=== PATIENT | female | born 1965 | race Caucasian/White ===

== ENCOUNTER 2020-07-18 03:33 | Outpatient (RCR) | payer OTHER, SELFPAY ==
[2020-07-18 09:57] LABS: Abs Immature Grans 1.42 10^3/uL (0.0-0.06); HCT 37.3 % (36.0-46.0); HGB 12.5 g/dL (11.2-15.7); MCH 28.8 pg (27.0-33.0); MCHC 33.5 % (32.0-36.0); MCV 85.9 fL (80-95); MPV 9.5 fL (8.0-11.0); Nucleated RBC 0 %; RBC 4.34 10^6/uL (3.93-5.22); RDW 12.4 % (11.7-14.6); RDW-SD 38.9 fL; WBC 11.69 10^3/uL (4.4-10.8)
[2020-07-18 10:11] LABS: ALT 45 U/L (14-59); AST 18 U/L (15-37); Albumin 3.2 g/dL (3.4-5.0); Alkaline Phosphatase 86 U/L (46-116); BUN 11 mg/dL (7-18); Bilirubin, Total 0.2 mg/dL (0.2-1.0); CREATININE 0.8 mg/dL (0.55-1.02); Calcium 8.7 mg/dL (8.5-10.1); Chloride 106 mmol/L (98-107); Glucose 99 mg/dL (74-106); Potassium 3.7 mmol/L (3.5-5.1); Sodium 141 mmol/L (136-145); Total Protein 7.2 g/dL (6.4-8.2)
[2020-07-18] MEDS: Normal Saline Flush 10 ML SYR IVP (10:11)
[2020-07-18] MEDS: Heparin 500 UNITS/5 ML SYRINGE IV (10:11)
[2020-07-18 10:18] LABS: Absolute Eosinophil Count 0.12 10^3/uL (0.0-0.7); Absolute Lymphocyte Count 1.52 10^3/uL (1.2-3.4); Absolute Monocyte Count 1.05 10^3/uL (0.1-0.8); Absolute Neutrophil Count 8.88 10^3/uL (1.2-6.7); Atypical Lymphocytes % 0; Bands % 6
[2020-07-18 10:19] LABS: Absolute Basophil Count 0.12 10^3/uL (0.0-0.2); Diff Comment Manual Differential
[2020-07-18 10:20] LABS: Platelet Count 203 10^3/uL (130-400); RBC Morphology Normal
== END 2020-08-10 23:59 | disposition home or self-care (01) ==
LOC: INF 03:33
PROVIDERS: Internal Medicine Hematology & Oncology; PCP Family Medicine; Visit Provider Internal Medicine Hematology & Oncology
DX: C50.412 Malignant neoplasm of upper-outer quadrant of left female breast (principal); Z17.0 Estrogen receptor positive status [ER+]; Z45.2 Encounter for adjustment and management of vascular access device
CPT/HCPCS: 36591; 80053; 85025

== ENCOUNTER 2020-07-28 10:21 | Outpatient (REF) | payer OTHER, SELFPAY ==
[2020-07-28 10:34] LABS: Abs Immature Grans 0.02 10^3/uL (0.0-0.06); Absolute Basophil Count 0.03 10^3/uL (0.0-0.2); Absolute Eosinophil Count 0.01 10^3/uL (0.0-0.7); Absolute Lymphocyte Count 1.15 10^3/uL (1.2-3.4); Absolute Monocyte Count 0.47 10^3/uL (0.1-0.8); Absolute Neutrophil Count 3.24 10^3/uL (1.2-6.7); Basophils % 0.6; Eosinophils % 0.2; HCT 32.5 % (36.0-46.0); Immature Grans % 0.4; Lymphocytes % 23.4; MCH 29.1 pg (27.0-33.0); MCHC 33.8 % (32.0-36.0); MPV 9.6 fL (8.0-11.0); Monocytes % 9.6; Neutrophils % 65.8; Nucleated RBC 0 %; Platelet Count 283 10^3/uL (130-400); RBC 3.78 10^6/uL (3.93-5.22); RDW 12.2 % (11.7-14.6); RDW-SD 37.2 fL; WBC 4.92 10^3/uL (4.4-10.8)
[2020-07-28 10:53] LABS: ALT 33 U/L (14-59); AST 16 U/L (15-37); Albumin 3.1 g/dL (3.4-5.0); Alkaline Phosphatase 53 U/L (46-116); Anion Gap 8.8 mmol/L (3-11); BUN 14 mg/dL (7-18); Bilirubin, Total 0.3 mg/dL (0.2-1.0); CO2 26.2 mmol/L (21.0-32.0); CREATININE 0.6 mg/dL (0.55-1.02); Calcium 8.9 mg/dL (8.5-10.1); Chloride 108 mmol/L (98-107); Glucose 96 mg/dL (74-106); Potassium 3.9 mmol/L (3.5-5.1); Sodium 143 mmol/L (136-145); T4 8.8 ug/mL (4.7-13.3); TSH 0.01 uIU/mL (0.36-3.74); Total Protein 6.9 g/dL (6.4-8.2)
[2020-07-28 17:15] LABS: T3, Total 263 ng/dL (97-169)
== END 2020-07-28 10:22 | disposition home or self-care (01) ==
LOC: LBN 10:21
PROVIDERS: PCP Family Medicine; Visit Provider Internal Medicine Hematology & Oncology
DX: C50.412 Malignant neoplasm of upper-outer quadrant of left female breast (principal); Z17.0 Estrogen receptor positive status [ER+]
CPT/HCPCS: 80053; 84436; 84443; 84480; 85025

== ENCOUNTER 2020-09-08 01:45 | Outpatient (RCR) | payer OTHER, SELFPAY ==
[2020-08-18] MEDS: Normal Saline Flush 10 ML SYR IVP (08:58)
[2020-08-18 09:01] LABS: Abs Immature Grans 0.02 10^3/uL (0.0-0.06); Absolute Basophil Count 0.03 10^3/uL (0.0-0.2); Absolute Eosinophil Count 0.05 10^3/uL (0.0-0.7); Absolute Lymphocyte Count 1.15 10^3/uL (1.2-3.4); Absolute Monocyte Count 0.31 10^3/uL (0.1-0.8); Absolute Neutrophil Count 1.81 10^3/uL (1.2-6.7); Basophils % 0.9; Eosinophils % 1.5; HCT 32.6 % (36.0-46.0); HGB 10.8 g/dL (11.2-15.7); Immature Grans % 0.6; Lymphocytes % 34.1; MCHC 33.1 % (32.0-36.0); MCV 87.6 fL (80-95); Monocytes % 9.2; Neutrophils % 53.7; Nucleated RBC 0 %; Platelet Count 236 10^3/uL (130-400); RBC 3.72 10^6/uL (3.93-5.22); RDW 14.8 % (11.7-14.6); RDW-SD 45.2 fL; WBC 3.37 10^3/uL (4.4-10.8)
[2020-08-18 09:13] LABS: ALT 29 U/L (14-59); AST 15 U/L (15-37); Albumin 3.5 g/dL (3.4-5.0); Alkaline Phosphatase 67 U/L (46-116); Anion Gap 7.4 mmol/L (3-11); BUN 10 mg/dL (7-18); Bilirubin, Total 0.3 mg/dL (0.2-1.0); CO2 26.6 mmol/L (21.0-32.0); CREATININE 0.7 mg/dL (0.55-1.02); Calcium 9.4 mg/dL (8.5-10.1); Chloride 107 mmol/L (98-107); Glucose 101 mg/dL (74-106); Potassium 3.8 mmol/L (3.5-5.1); Sodium 141 mmol/L (136-145); Total Protein 7.3 g/dL (6.4-8.2)
[2020-09-08] MEDS: Normal Saline Flush 10 ML SYR IVP (09:25)
[2020-09-08 09:26] LABS: Abs Immature Grans 0.02 10^3/uL (0.0-0.06); Absolute Basophil Count 0.01 10^3/uL (0.0-0.2); Absolute Eosinophil Count 0.01 10^3/uL (0.0-0.7); Absolute Lymphocyte Count 1.09 10^3/uL (1.2-3.4); Absolute Monocyte Count 0.39 10^3/uL (0.1-0.8); Basophils % 0.3; Eosinophils % 0.3; HCT 30.6 % (36.0-46.0); HGB 10.3 g/dL (11.2-15.7); Immature Grans % 0.5; Lymphocytes % 28.5; MCH 29.8 pg (27.0-33.0); MCHC 33.7 % (32.0-36.0); MCV 88.4 fL (80-95); MPV 9.6 fL (8.0-11.0); Monocytes % 10.2; Neutrophils % 60.2; Nucleated RBC 0 %; Platelet Count 183 10^3/uL (130-400); RBC 3.46 10^6/uL (3.93-5.22); RDW 16.6 % (11.7-14.6); RDW-SD 52.8 fL; WBC 3.82 10^3/uL (4.4-10.8)
[2020-09-08 09:40] LABS: ALT 25 U/L (14-59); AST 13 U/L (15-37); Albumin 3.5 g/dL (3.4-5.0); Alkaline Phosphatase 62 U/L (46-116); Anion Gap 11.2 mmol/L (3-11); BUN 13 mg/dL (7-18); Bilirubin, Total 0.3 mg/dL (0.2-1.0); CO2 24.8 mmol/L (21.0-32.0); CREATININE 0.7 mg/dL (0.55-1.02); Calcium 9.4 mg/dL (8.5-10.1); Chloride 107 mmol/L (98-107); Glucose 99 mg/dL (74-106); Potassium 3.9 mmol/L (3.5-5.1); Sodium 143 mmol/L (136-145); Total Protein 7.4 g/dL (6.4-8.2)
== END 2020-09-09 23:59 | disposition home or self-care (01) ==
LOC: INF 01:45
PROVIDERS: PCP Family Medicine; Visit Provider Internal Medicine Hematology & Oncology
DX: C50.412 Malignant neoplasm of upper-outer quadrant of left female breast (principal); Z17.0 Estrogen receptor positive status [ER+]; Z45.2 Encounter for adjustment and management of vascular access device
CPT/HCPCS: 36591; 80053; 85025

== ENCOUNTER 2020-09-29 02:50 | Outpatient (RCR) | payer OTHER, SELFPAY ==
[2020-09-29] MEDS: Normal Saline Flush 10 ML SYR IVP (08:02)
[2020-09-29 08:21] LABS: Abs Immature Grans 0.02 10^3/uL (0.0-0.06); Absolute Basophil Count 0.02 10^3/uL (0.0-0.2); Absolute Lymphocyte Count 1.02 10^3/uL (1.2-3.4); Absolute Monocyte Count 0.37 10^3/uL (0.1-0.8); Absolute Neutrophil Count 1.63 10^3/uL (1.2-6.7); Basophils % 0.7; HCT 30.1 % (36.0-46.0); Immature Grans % 0.7; Lymphocytes % 33.3; MCH 30.4 pg (27.0-33.0); MCHC 33.2 % (32.0-36.0); MCV 91.5 fL (80-95); MPV 9.7 fL (8.0-11.0); Monocytes % 12.1; Neutrophils % 53.2; Nucleated RBC 0 %; Platelet Count 149 10^3/uL (130-400); RBC 3.29 10^6/uL (3.93-5.22); RDW 17.2 % (11.7-14.6); RDW-SD 57.9 fL; WBC 3.06 10^3/uL (4.4-10.8)
[2020-09-29 08:53] LABS: ALT 23 U/L (14-59); AST 10 U/L (15-37); Albumin 3.5 g/dL (3.4-5.0); Alkaline Phosphatase 68 U/L (46-116); Anion Gap 9.9 mmol/L (3-11); BUN 13 mg/dL (7-18); Bilirubin, Total 0.3 mg/dL (0.2-1.0); CO2 27.1 mmol/L (21.0-32.0); CREATININE 0.7 mg/dL (0.55-1.02); Calcium 8.8 mg/dL (8.5-10.1); Chloride 106 mmol/L (98-107); Glucose 103 mg/dL (74-106); Potassium 3.8 mmol/L (3.5-5.1); Sodium 143 mmol/L (136-145); T4 11.3 ug/mL (4.7-13.3); Total Protein 7.6 g/dL (6.4-8.2)
[2020-09-29 08:57] LABS: TSH < 0.01 uIU/mL (0.36-3.74)
[2020-09-29 16:44] LABS: T3, Total 324 ng/dL (97-169)
== END 2020-10-10 23:59 | disposition home or self-care (01) ==
LOC: INF 02:50
PROVIDERS: PCP Family Medicine; Visit Provider Internal Medicine Hematology & Oncology
DX: C50.412 Malignant neoplasm of upper-outer quadrant of left female breast (principal); Z17.0 Estrogen receptor positive status [ER+]; Z45.2 Encounter for adjustment and management of vascular access device
CPT/HCPCS: 36591; 80053; 84436; 84443; 84480; 85025

== ENCOUNTER 2020-10-20 02:34 | Outpatient (RCR) | payer OTHER, SELFPAY ==
[2020-10-20] MEDS: Normal Saline Flush 10 ML SYR IVP (09:23)
[2020-10-20 09:41] LABS: Abs Immature Grans 0.01 10^3/uL (0.0-0.06); Absolute Basophil Count 0.01 10^3/uL (0.0-0.2); Absolute Lymphocyte Count 0.95 10^3/uL (1.2-3.4); Absolute Monocyte Count 0.38 10^3/uL (0.1-0.8); Absolute Neutrophil Count 1.57 10^3/uL (1.2-6.7); Basophils % 0.3; HCT 27.6 % (36.0-46.0); HGB 9.2 g/dL (11.2-15.7); Immature Grans % 0.3; Lymphocytes % 32.5; MCH 32.2 pg (27.0-33.0); MCHC 33.3 % (32.0-36.0); MCV 96.5 fL (80-95); MPV 9.9 fL (8.0-11.0); Neutrophils % 53.9; Nucleated RBC 0 %; Platelet Count 182 10^3/uL (130-400); RBC 2.86 10^6/uL (3.93-5.22); RDW 16.4 % (11.7-14.6); RDW-SD 58.6 fL; WBC 2.92 10^3/uL (4.4-10.8)
[2020-10-20 09:55] LABS: ALT 18 U/L (14-59); AST 5 U/L (15-37); Albumin 3.2 g/dL (3.4-5.0); Alkaline Phosphatase 62 U/L (46-116); Anion Gap 11.1 mmol/L (3-11); BUN 14 mg/dL (7-18); Bilirubin, Total 0.3 mg/dL (0.2-1.0); CO2 23.9 mmol/L (21.0-32.0); CREATININE 0.7 mg/dL (0.55-1.02); Calcium 8.8 mg/dL (8.5-10.1); Chloride 109 mmol/L (98-107); Glucose 104 mg/dL (74-106); Potassium 3.7 mmol/L (3.5-5.1); Sodium 144 mmol/L (136-145); TSH 0.01 uIU/mL (0.36-3.74)
[2020-10-20 17:17] LABS: T3, Total 166 ng/dL (97-169)
== END 2020-11-09 23:59 | disposition home or self-care (01) ==
LOC: INF 02:34
PROVIDERS: PCP Family Medicine; Visit Provider Internal Medicine Hematology & Oncology
DX: C50.412 Malignant neoplasm of upper-outer quadrant of left female breast (principal); Z45.2 Encounter for adjustment and management of vascular access device; Z17.0 Estrogen receptor positive status [ER+]
CPT/HCPCS: 36591; 80053; 84436; 84443; 84480; 85025

== ENCOUNTER 2021-01-03 13:45 | Outpatient (RCR) | payer OTHER, SELFPAY ==
[2021-01-03] MEDS: Normal Saline Flush 10 ML SYR IVP (14:00)
[2021-01-03] MEDS: Heparin 500 UNITS/5 ML SYRINGE IV (14:00)
== END 2021-01-10 23:59 | disposition home or self-care (01) ==
LOC: INF 13:45
PROVIDERS: PCP Family Medicine; Visit Provider Internal Medicine Hematology & Oncology
DX: Z45.2 Encounter for adjustment and management of vascular access device (principal)
CPT/HCPCS: 96523

== ENCOUNTER 2021-05-04 03:04 | Outpatient (RCR) | payer OTHER, SELFPAY ==
[2021-05-04] MEDS: Normal Saline Flush 10 ML SYR IVP (08:04)
[2021-05-04 08:16] LABS: Abs Immature Grans 0.02 10^3/uL (0.0-0.06); Absolute Basophil Count 0.03 10^3/uL (0.0-0.2); Absolute Eosinophil Count 0.32 10^3/uL (0.0-0.7); Absolute Lymphocyte Count 0.57 10^3/uL (1.2-3.4); Absolute Monocyte Count 0.58 10^3/uL (0.1-0.8); Absolute Neutrophil Count 2.83 10^3/uL (1.2-6.7); Basophils % 0.7; Eosinophils % 7.4; HCT 36.2 % (36.0-46.0); HGB 11.7 g/dL (11.2-15.7); Immature Grans % 0.5; Lymphocytes % 13.1; MCH 27.9 pg (27.0-33.0); MCHC 32.3 % (32.0-36.0); MCV 86.4 fL (80-95); MPV 8.8 fL (8.0-11.0); Monocytes % 13.3; Nucleated RBC 0 %; Platelet Count 258 10^3/uL (130-400); RBC 4.19 10^6/uL (3.93-5.22); RDW 13.1 % (11.7-14.6); RDW-SD 40.9 fL; WBC 4.35 10^3/uL (4.4-10.8)
[2021-05-04 08:28] LABS: ALT 26 U/L (14-59); AST 18 U/L (15-37); Albumin 3.3 g/dL (3.4-5.0); Alkaline Phosphatase 60 U/L (46-116); Anion Gap 10.3 mmol/L (3-11); BUN 15 mg/dL (7-18); Bilirubin, Total 0.3 mg/dL (0.2-1.0); CO2 27.7 mmol/L (21.0-32.0); CREATININE 0.7 mg/dL (0.55-1.02); Calcium 9.5 mg/dL (8.5-10.1); Chloride 104 mmol/L (98-107); Glucose 101 mg/dL (74-106); Potassium 3.6 mmol/L (3.5-5.1); Sodium 142 mmol/L (136-145); Total Protein 7.7 g/dL (6.4-8.2)
== END 2021-05-12 23:59 | disposition home or self-care (01) ==
LOC: INF 03:04
PROVIDERS: Internal Medicine Hematology & Oncology; PCP Family Medicine; Visit Provider Internal Medicine Hematology & Oncology
DX: C50.412 Malignant neoplasm of upper-outer quadrant of left female breast (principal); Z45.2 Encounter for adjustment and management of vascular access device; Z17.0 Estrogen receptor positive status [ER+]
CPT/HCPCS: 36591; 80053; 85025

== ENCOUNTER 2021-05-25 03:39 | Outpatient (RCR) | payer OTHER, SELFPAY ==
[2021-05-25] MEDS: Normal Saline Flush 10 ML SYR IVP (09:11)
[2021-05-25 09:17] LABS: Abs Immature Grans 0.04 10^3/uL (0.0-0.06); Absolute Basophil Count 0.04 10^3/uL (0.0-0.2); Absolute Eosinophil Count 0.29 10^3/uL (0.0-0.7); Absolute Monocyte Count 0.66 10^3/uL (0.1-0.8); Absolute Neutrophil Count 4.48 10^3/uL (1.2-6.7); Basophils % 0.7; Eosinophils % 4.7; HCT 35.6 % (36.0-46.0); HGB 11.5 g/dL (11.2-15.7); Immature Grans % 0.7; Lymphocytes % 9.8; MCH 27.5 pg (27.0-33.0); MCHC 32.3 % (32.0-36.0); MCV 85.2 fL (80-95); MPV 8.9 fL (8.0-11.0); Monocytes % 10.8; Neutrophils % 73.3; Nucleated RBC 0 %; Platelet Count 292 10^3/uL (130-400); RBC 4.18 10^6/uL (3.93-5.22); RDW 12.7 % (11.7-14.6); RDW-SD 39.1 fL; WBC 6.11 10^3/uL (4.4-10.8)
[2021-05-25 09:30] LABS: ALT 25 U/L (14-59); AST 18 U/L (15-37); Albumin 3.3 g/dL (3.4-5.0); Alkaline Phosphatase 55 U/L (46-116); Anion Gap 7.6 mmol/L (3-11); BUN 14 mg/dL (7-18); Bilirubin, Total 0.2 mg/dL (0.2-1.0); CO2 28.4 mmol/L (21.0-32.0); CREATININE 0.6 mg/dL (0.55-1.02); Calcium 9.6 mg/dL (8.5-10.1); Chloride 103 mmol/L (98-107); Glucose 98 mg/dL (74-106); Potassium 3.8 mmol/L (3.5-5.1); Sodium 139 mmol/L (136-145); Total Protein 7.6 g/dL (6.4-8.2)
== END 2021-06-12 23:59 | disposition home or self-care (01) ==
LOC: INF 03:39
PROVIDERS: PCP Family Medicine; Visit Provider Internal Medicine Hematology & Oncology
DX: C50.412 Malignant neoplasm of upper-outer quadrant of left female breast (principal); Z17.0 Estrogen receptor positive status [ER+]; Z45.2 Encounter for adjustment and management of vascular access device
CPT/HCPCS: 36591; 80053; 85025

== ENCOUNTER 2021-07-06 01:20 | Outpatient (RCR) | payer OTHER, SELFPAY ==
[2021-06-15] MEDS: Normal Saline Flush 10 ML SYR IVP (10:00)
[2021-06-15 10:27] LABS: Abs Immature Grans 0.01 10^3/uL (0.0-0.06); Absolute Basophil Count 0.04 10^3/uL (0.0-0.2); Absolute Eosinophil Count 0.19 10^3/uL (0.0-0.7); Absolute Lymphocyte Count 0.55 10^3/uL (1.2-3.4); Absolute Monocyte Count 0.37 10^3/uL (0.1-0.8); Basophils % 1.1; Eosinophils % 5.3; HGB 11.8 g/dL (11.2-15.7); Immature Grans % 0.3; Lymphocytes % 15.4; MCH 27.1 pg (27.0-33.0); MCHC 31.9 % (32.0-36.0); MCV 84.9 fL (80-95); MPV 9.4 fL (8.0-11.0); Monocytes % 10.4; Neutrophils % 67.5; Nucleated RBC 0 %; Platelet Count 291 10^3/uL (130-400); RBC 4.36 10^6/uL (3.93-5.22); RDW 13.5 % (11.7-14.6); RDW-SD 41.5 fL; WBC 3.56 10^3/uL (4.4-10.8)
[2021-06-15 10:41] LABS: ALT 29 U/L (14-59); AST 20 U/L (15-37); Albumin 3.4 g/dL (3.4-5.0); Alkaline Phosphatase 53 U/L (46-116); BUN 12 mg/dL (7-18); Bilirubin, Total 0.3 mg/dL (0.2-1.0); CREATININE 0.6 mg/dL (0.55-1.02); Calcium 9.6 mg/dL (8.5-10.1); Chloride 105 mmol/L (98-107); Glucose 100 mg/dL (74-106); Potassium 3.5 mmol/L (3.5-5.1); Sodium 141 mmol/L (136-145); Total Protein 7.7 g/dL (6.4-8.2)
[2021-07-06] MEDS: Normal Saline Flush 10 ML SYR IVP (10:51)
[2021-07-06 11:12] LABS: Absolute Basophil Count 0.03 10^3/uL (0.0-0.2); Absolute Eosinophil Count 0.15 10^3/uL (0.0-0.7); Absolute Lymphocyte Count 0.79 10^3/uL (1.2-3.4); Absolute Monocyte Count 0.47 10^3/uL (0.1-0.8); Absolute Neutrophil Count 1.73 10^3/uL (1.2-6.7); Basophils % 0.9; Eosinophils % 4.7; HCT 37.3 % (36.0-46.0); HGB 11.9 g/dL (11.2-15.7); Lymphocytes % 24.9; MCH 27.4 pg (27.0-33.0); MCHC 31.9 % (32.0-36.0); MCV 85.7 fL (80-95); MPV 9.8 fL (8.0-11.0); Monocytes % 14.8; Neutrophils % 54.7; Nucleated RBC 0 %; Platelet Count 253 10^3/uL (130-400); RBC 4.35 10^6/uL (3.93-5.22); RDW-SD 43.7 fL; WBC 3.17 10^3/uL (4.4-10.8)
[2021-07-06 11:23] LABS: ALT 29 U/L (14-59); AST 20 U/L (15-37); Albumin 3.5 g/dL (3.4-5.0); Alkaline Phosphatase 54 U/L (46-116); Anion Gap 3.6 mmol/L (3-11); BUN 14 mg/dL (7-18); Bilirubin, Total 0.3 mg/dL (0.2-1.0); CO2 28.4 mmol/L (21.0-32.0); CREATININE 0.6 mg/dL (0.55-1.02); Calcium 9.3 mg/dL (8.5-10.1); Chloride 108 mmol/L (98-107); Glucose 89 mg/dL (74-106); Potassium 3.7 mmol/L (3.5-5.1); Sodium 140 mmol/L (136-145); Total Protein 7.6 g/dL (6.4-8.2)
== END 2021-07-10 23:59 | disposition home or self-care (01) ==
LOC: INF 01:20
PROVIDERS: Internal Medicine Hematology & Oncology; PCP Family Medicine; Visit Provider Internal Medicine Hematology & Oncology
DX: Z45.2 Encounter for adjustment and management of vascular access device (principal); C50.412 Malignant neoplasm of upper-outer quadrant of left female breast; Z17.0 Estrogen receptor positive status [ER+]
CPT/HCPCS: 36591; 80053; 85025

== ENCOUNTER 2021-07-27 03:19 | Outpatient (RCR) | payer OTHER, SELFPAY ==
[2021-07-27] MEDS: Normal Saline Flush 10 ML SYR IVP (10:51)
[2021-07-27 10:58] LABS: Abs Immature Grans 0.02 10^3/uL (0.0-0.06); Absolute Basophil Count 0.01 10^3/uL (0.0-0.2); Absolute Lymphocyte Count 0.82 10^3/uL (1.2-3.4); Absolute Neutrophil Count 2.23 10^3/uL (1.2-6.7); Basophils % 0.3; Eosinophils % 2.7; HCT 39.5 % (36.0-46.0); HGB 12.7 g/dL (11.2-15.7); Immature Grans % 0.5; Lymphocytes % 22.3; MCH 26.8 pg (27.0-33.0); MCHC 32.2 % (32.0-36.0); MCV 83.5 fL (80-95); MPV 9.5 fL (8.0-11.0); Monocytes % 13.6; Neutrophils % 60.6; Nucleated RBC 0 %; Platelet Count 287 10^3/uL (130-400); RBC 4.73 10^6/uL (3.93-5.22); RDW 13.9 % (11.7-14.6); RDW-SD 42.7 fL; WBC 3.68 10^3/uL (4.4-10.8)
[2021-07-27 11:12] LABS: ALT 33 U/L (14-59); AST 25 U/L (15-37); Albumin 3.7 g/dL (3.4-5.0); Alkaline Phosphatase 59 U/L (46-116); Anion Gap 8.3 mmol/L (3-11); BUN 15 mg/dL (7-18); Bilirubin, Total 0.3 mg/dL (0.2-1.0); CO2 26.7 mmol/L (21.0-32.0); CREATININE 0.6 mg/dL (0.55-1.02); Calcium 9.9 mg/dL (8.5-10.1); Chloride 107 mmol/L (98-107); Glucose 96 mg/dL (74-106); Potassium 3.8 mmol/L (3.5-5.1); Sodium 142 mmol/L (136-145)
== END 2021-08-10 23:59 | disposition home or self-care (01) ==
LOC: INF 03:19
PROVIDERS: PCP Family Medicine; Visit Provider Internal Medicine Hematology & Oncology
DX: C50.412 Malignant neoplasm of upper-outer quadrant of left female breast (principal); Z17.0 Estrogen receptor positive status [ER+]; Z45.2 Encounter for adjustment and management of vascular access device
CPT/HCPCS: 36591; 80053; 85025

== ENCOUNTER 2021-09-07 12:00 | Outpatient (RCR) | payer OTHER, SELFPAY ==
[2021-08-17] MEDS: Normal Saline Flush 10 ML SYR IVP (10:39)
[2021-08-17 10:47] LABS: Abs Immature Grans 0.01 10^3/uL (0.0-0.06); Absolute Basophil Count 0.02 10^3/uL (0.0-0.2); Absolute Eosinophil Count 0.16 10^3/uL (0.0-0.7); Absolute Lymphocyte Count 0.77 10^3/uL (1.2-3.4); Absolute Monocyte Count 0.53 10^3/uL (0.1-0.8); Absolute Neutrophil Count 2.39 10^3/uL (1.2-6.7); Basophils % 0.5; Eosinophils % 4.1; HCT 38.3 % (36.0-46.0); HGB 12.2 g/dL (11.2-15.7); Immature Grans % 0.3; Lymphocytes % 19.8; MCH 26.6 pg (27.0-33.0); MCHC 31.9 % (32.0-36.0); MCV 83.4 fL (80-95); MPV 9.9 fL (8.0-11.0); Monocytes % 13.7; Neutrophils % 61.6; Nucleated RBC 0 %; Platelet Count 256 10^3/uL (130-400); RBC 4.59 10^6/uL (3.93-5.22); RDW 15.3 % (11.7-14.6); RDW-SD 46.9 fL; WBC 3.88 10^3/uL (4.4-10.8)
[2021-08-17 10:59] LABS: ALT 36 U/L (14-59); AST 23 U/L (15-37); Albumin 3.5 g/dL (3.4-5.0); Alkaline Phosphatase 57 U/L (46-116); Anion Gap 6.9 mmol/L (3-11); BUN 12 mg/dL (7-18); Bilirubin, Total 0.3 mg/dL (0.2-1.0); CO2 29.1 mmol/L (21.0-32.0); CREATININE 0.6 mg/dL (0.55-1.02); Calcium 9.6 mg/dL (8.5-10.1); Chloride 105 mmol/L (98-107); Glucose 97 mg/dL (74-106); Potassium 3.7 mmol/L (3.5-5.1); Sodium 141 mmol/L (136-145); Total Protein 7.6 g/dL (6.4-8.2)
[2021-09-07] MEDS: Normal Saline Flush 10 ML SYR IVP (12:51)
[2021-09-07 13:09] LABS: Abs Immature Grans 0.02 10^3/uL (0.0-0.06); Absolute Basophil Count 0.03 10^3/uL (0.0-0.2); Absolute Eosinophil Count 0.15 10^3/uL (0.0-0.7); Absolute Lymphocyte Count 0.95 10^3/uL (1.2-3.4); Absolute Monocyte Count 0.35 10^3/uL (0.1-0.8); Absolute Neutrophil Count 3.25 10^3/uL (1.2-6.7); Basophils % 0.6; Eosinophils % 3.2; HCT 37.7 % (36.0-46.0); HGB 12.1 g/dL (11.2-15.7); Immature Grans % 0.4; MCH 27.3 pg (27.0-33.0); MCHC 32.1 % (32.0-36.0); MCV 85 fL (80-95); MPV 9.7 fL (8.0-11.0); Monocytes % 7.4; Neutrophils % 68.4; Platelet Count 248 10^3/uL (130-400); RBC 4.43 10^6/uL (3.93-5.22); WBC 4.75 10^3/uL (4.4-10.8)
[2021-09-07 13:31] LABS: ALT 30 U/L (14-59); AST 26 U/L (15-37); Albumin 3.4 g/dL (3.4-5.0); Alkaline Phosphatase 64 U/L (46-116); Anion Gap 7.8 mmol/L (3-11); BUN 18 mg/dL (7-18); Bilirubin, Total 0.3 mg/dL (0.2-1.0); CO2 28.2 mmol/L (21.0-32.0); CREATININE 0.6 mg/dL (0.55-1.02); Calcium 9.2 mg/dL (8.5-10.1); Chloride 106 mmol/L (98-107); Glucose 127 mg/dL (74-106); Potassium 3.6 mmol/L (3.5-5.1); Sodium 142 mmol/L (136-145); Total Protein 7.7 g/dL (6.4-8.2)
== END 2021-09-09 23:59 | disposition home or self-care (01) ==
LOC: INF 12:00
PROVIDERS: PCP Family Medicine; Visit Provider Internal Medicine Hematology & Oncology
DX: C50.412 Malignant neoplasm of upper-outer quadrant of left female breast (principal); Z17.0 Estrogen receptor positive status [ER+]; Z45.2 Encounter for adjustment and management of vascular access device
CPT/HCPCS: 36591; 80053; 85025

== ENCOUNTER → 2021-09-14 03:04 | Outpatient (CLI) | payer OTHER, SELFPAY ==
--- NOTE | 2021-09-14 | DI.US_ITS ---
APPROVED REPORT EXAM: Comprehensive 2D, Doppler, and color-flow Echocardiogram Patient Location: Out-Patient Bank Manager: Rosemarie Haney RDCS (AE) Indications: Lt breast cancer, Chemotherapy Other Information Study Quality: Adequate Conclusion Normal left ventricular wall thickness and chamber size. Estimated ejection fraction is 55 to 60%. Wall motion is normal Normal right ventricular size and systolic function Both atria are normal in size There is no structural or hemodynamically significant valvular disease Normal estimated right ventricular systolic pressure, 26 mmHg Wall motion Left Ventricle The left ventricle is normal size. The left ventricular systolic function is normal. The left ventric ular ejection fraction is within the normal range. There is normal left ventricular wall thickness. T here is normal LV segmental wall motion. There is no ventricular septal defect visualized. LVEF is 55 -60%. Right Ventricle The right ventricle is normal size. The right ventricular systolic function is normal. The RVSP is 26 .0 mmHg. Atria Left atrium is borderline dilated. The right atrium size is normal. The interatrial septum is intact with no evidence for an atrial septal defect. Aortic Valve The aortic valve is normal in structure. Aortic valve is trileaflet. There is no aortic valvular sten osis. No aortic regurgitation is present. Mitral Valve The mitral valve is normal in structure. No evidence of mitral valve stenosis. Mild mitral regurgitat ion. Tricuspid Valve The tricuspid valve is normal in structure. There is no tricuspid valve stenosis. Trace to mild tricu spid regurgitation. Pulmonic Valve The pulmonary valve is normal in structure. There is no pulmonic valvular stenosis. Trace pulmonic re gurgitation. Great Vessels The aortic root is normal in size. The ascending aorta is normal in size. Aortic arch is normal in ca liber. IVC is normal in size and collapses >50% with inspiration. Pericardium There is no pericardial effusion. 2D Dimensions IVSD d PLAX 0.91 cm F: 0.6-1.0 LV Vol A2C d MOD 104.0 mL LVPW d PLAX 0.90 cm F: 0.6 - 1.0 LV Vol A4C d MOD 116.7 mL LVID d PLAX 4.41 cm F: 3.8 - 5.2 LA vol/ BSA A2C s A-L 38.4 mL/m2 LVDs 2.95 cm F: 2.2 - 3.5 LA vol/ BSA A4C s A-L 25.0 mL/m2 Ao Root d 3.34 cm F: 2.7 - 3.3 LA Vol/ BSA Biplane s A-L 31.7 mL/m2 RA Area A4C 13.15 cm2 LA Area A4C s MOD 17.27 cm2 RA Vol/ BSA A4C s A-L 16.4 mL/m2 LA Area A2C s MOD 20.93 cm2 Ao Asc Diam d 3.24 cm F: 2.3 - 3.1 LV EF A4C MOD 60.0 % LV EF Teichholz 61.1 % LV EF A2C MOD 60.8 % LVEF (Gabriel's) 61.20 % F: 54 - 74 LV EF Biplane MOD 61.2 % LV Volume 87.15 mL F: 46 - 106 SV 69.60 mL LV Volume Index 46.60 mL/m2 F: 29 - 61 SV Index 37.07 mL/m2 LV Vol Biplane MOD 113.7 mL FS 32.50 % M-Mode TAPSE 2.09 cm (M/F) >1.7 LV Diastology MV E' medial 0.068 (>0.07 m/s) E/A Ratio 0.9 LV E/e MED 9.10 (<14) MV E Vmax 0.63 (0.4-1.3 m/s) MV E' lateral 0.103 (>0.1 m/s) MV A Vmax 0.70 (0.4-1.3 m/s) LV E/e LAT 6.05 (<14) MV E/A Ratio 0.86 MV E/E' medial 9.14 MV E/E' lateral 6.10 Aortic Valve LVOT Area 3.42 cm2 AoV Area Vmax 2.84 cm2 LVOT Vmax 1.09 m/s AoV Area/ BSA (Vmax) 1.52 cm2/m2 LVOT Mean [place]. 0.73 m/s DARCI Mean [place]. 2.77 cm2 LVOT Peak Grad 4.7 mmHg DARCI Mean [place]. Index 1.47 cm2/m2 LVOT Mean Grad 2.5 mmHg LVOT VTI 0.216 m LVOT Diam s 2.05 cm AoV Vmax 1.31 m/s Velocity Ratio 0.83 AoV Mean [place]. 0.90 m/s AoV Peak Grad 6.8 mmHg LVOT SV 73.98 mL AoV Mean Grad 3.7 mmHg AoV VTI 0.236 m AoV Area VTI 3.14 cm2 AoV Area/ BSA (VTI) 1.67 cm/m2 Mitral Valve MV DT 272 (160-240 msec) MV PHT 79 msec MV Area PHT 2.79 cm2 MV VTI 0.194 m MV Area VTI 3.81 (4.0-6.0 cm2) Pulmonary Valve PV Vmax 0.80 (0.5-1.5 m/s) RVOT Peak Gr. 1.61 mmHg PV Peak Grad 2.6 mmHg RVOT Mean Gr. 0.80 mmHg PV Mean Grad 1.7 mmHg RVOT VTI 0.105 m PV VTI 0.166 m RVOT Vmax 0.63 m/s Tricuspid Valve TR Peak Grad 22.9 mmHg TR Vmax 2.40 m/s RA Pressure 3.00 mmHg RVSP (TR) 26.0 mmHg
== END ==
PROVIDERS: PCP Family Medicine; Visit Provider Internal Medicine Hematology & Oncology
DX: C50.912 Malignant neoplasm of unspecified site of left female breast (principal); Z01.818 Encounter for other preprocedural examination
CPT/HCPCS: 93306

== ENCOUNTER 2021-09-28 03:13 | Outpatient (RCR) | payer OTHER, SELFPAY ==
[2021-09-28 10:29] LABS: Absolute Basophil Count 0.04 10^3/uL (0.0-0.2); Absolute Eosinophil Count 0.25 10^3/uL (0.0-0.7); Absolute Monocyte Count 0.51 10^3/uL (0.1-0.8); Absolute Neutrophil Count 1.99 10^3/uL (1.2-6.7); Basophils % 1.1; Eosinophils % 6.6; HCT 38.4 % (36.0-46.0); HGB 12.3 g/dL (11.2-15.7); Lymphocytes % 26.4; MCH 27.7 pg (27.0-33.0); MCV 87 fL (80-95); MPV 9.5 fL (8.0-11.0); Monocytes % 13.5; Neutrophils % 52.4; Platelet Count 216 10^3/uL (130-400); RBC 4.44 10^6/uL (3.93-5.22); RDW 15.1 % (11.7-14.6); RDW-SD 47.5 fL; WBC 3.79 10^3/uL (4.4-10.8)
[2021-09-28 10:42] LABS: ALT 36 U/L (14-59); AST 27 U/L (15-37); Albumin 3.6 g/dL (3.4-5.0); Alkaline Phosphatase 61 U/L (46-116); Anion Gap 7.5 mmol/L (3-11); BUN 13 mg/dL (7-18); Bilirubin, Total 0.4 mg/dL (0.2-1.0); CO2 28.5 mmol/L (21.0-32.0); CREATININE 0.6 mg/dL (0.55-1.02); Calcium 9.4 mg/dL (8.5-10.1); Chloride 107 mmol/L (98-107); Glucose 96 mg/dL (74-106); Potassium 3.8 mmol/L (3.5-5.1); Sodium 143 mmol/L (136-145); Total Protein 7.8 g/dL (6.4-8.2)
[2021-09-28] MEDS: Normal Saline Flush 10 ML SYR IVP (11:52)
== END 2021-10-10 23:59 | disposition home or self-care (01) ==
LOC: INF 03:13
PROVIDERS: PCP Family Medicine; Visit Provider Internal Medicine Hematology & Oncology
DX: Z45.2 Encounter for adjustment and management of vascular access device (principal); C50.412 Malignant neoplasm of upper-outer quadrant of left female breast; Z17.0 Estrogen receptor positive status [ER+]
CPT/HCPCS: 36591; 80053; 85025

== ENCOUNTER 2021-11-09 02:12 | Outpatient (RCR) | payer OTHER, SELFPAY ==
[2021-10-19] MEDS: Normal Saline Flush 10 ML SYR IVP (12:29)
[2021-10-19 12:31] LABS: Abs Immature Grans 0.02 10^3/uL (0.0-0.06); Absolute Basophil Count 0.04 10^3/uL (0.0-0.2); Absolute Eosinophil Count 0.22 10^3/uL (0.0-0.7); Absolute Lymphocyte Count 1.07 10^3/uL (1.2-3.4); Absolute Monocyte Count 0.53 10^3/uL (0.1-0.8); Absolute Neutrophil Count 2.24 10^3/uL (1.2-6.7); Eosinophils % 5.3; HCT 39.2 % (36.0-46.0); HGB 12.9 g/dL (11.2-15.7); Immature Grans % 0.5; MCH 28.1 pg (27.0-33.0); MCHC 32.9 % (32.0-36.0); MCV 85 fL (80-95); MPV 9.4 fL (8.0-11.0); Monocytes % 12.9; Neutrophils % 54.3; Platelet Count 216 10^3/uL (130-400); RBC 4.59 10^6/uL (3.93-5.22); RDW 14.5 % (11.7-14.6); RDW-SD 45.6 fL; WBC 4.12 10^3/uL (4.4-10.8)
[2021-10-19 12:55] LABS: ALT 35 U/L (14-59); AST 30 U/L (15-37); Albumin 3.7 g/dL (3.4-5.0); Alkaline Phosphatase 68 U/L (46-116); BUN 12 mg/dL (7-18); Bilirubin, Total 0.4 mg/dL (0.2-1.0); CREATININE 0.7 mg/dL (0.55-1.02); Calcium 9.8 mg/dL (8.5-10.1); Chloride 104 mmol/L (98-107); Glucose 94 mg/dL (74-106); Potassium 3.5 mmol/L (3.5-5.1); Sodium 141 mmol/L (136-145); Total Protein 7.9 g/dL (6.4-8.2)
[2021-11-09] MEDS: Normal Saline Flush 10 ML SYR IVP (10:20)
[2021-11-09 10:33] LABS: Abs Immature Grans 0.01 10^3/uL (0.0-0.06); Absolute Basophil Count 0.03 10^3/uL (0.0-0.2); Absolute Eosinophil Count 0.19 10^3/uL (0.0-0.7); Absolute Lymphocyte Count 0.81 10^3/uL (1.2-3.4); Absolute Monocyte Count 0.43 10^3/uL (0.1-0.8); Absolute Neutrophil Count 2.12 10^3/uL (1.2-6.7); Basophils % 0.8; Eosinophils % 5.3; HGB 12.8 g/dL (11.2-15.7); Immature Grans % 0.3; Lymphocytes % 22.6; MCH 28.4 pg (27.0-33.0); MCHC 32.8 % (32.0-36.0); MCV 87 fL (80-95); Platelet Count 199 10^3/uL (130-400); RBC 4.51 10^6/uL (3.93-5.22); RDW-SD 44.2 fL; WBC 3.59 10^3/uL (4.4-10.8)
[2021-11-09 10:52] LABS: ALT 37 U/L (14-59); AST 30 U/L (15-37); Albumin 3.5 g/dL (3.4-5.0); Alkaline Phosphatase 62 U/L (46-116); Anion Gap 9.1 mmol/L (3-11); BUN 14 mg/dL (7-18); Bilirubin, Total 0.3 mg/dL (0.2-1.0); CO2 26.9 mmol/L (21.0-32.0); CREATININE 0.6 mg/dL (0.55-1.02); Calcium 9.9 mg/dL (8.5-10.1); Chloride 104 mmol/L (98-107); Glucose 99 mg/dL (74-106); Potassium 3.6 mmol/L (3.5-5.1); Sodium 140 mmol/L (136-145); Total Protein 7.8 g/dL (6.4-8.2)
== END 2021-11-09 23:59 | disposition home or self-care (01) ==
LOC: INF 02:12
PROVIDERS: PCP Family Medicine; Visit Provider Internal Medicine Hematology & Oncology
DX: Z45.2 Encounter for adjustment and management of vascular access device (principal); C50.412 Malignant neoplasm of upper-outer quadrant of left female breast; Z17.0 Estrogen receptor positive status [ER+]
CPT/HCPCS: 36591; 80053; 85025